=== PATIENT | female | born 1990 | race Caucasian/White ===

== ENCOUNTER 2018-09-20 16:59 | Emergency (ER) | payer SELFPAY ==
[~2018-09-20] VITALS: Ht 149.9 cm; Wt 90.0 kg
[~2018-09-20 16:59] MED LIST: ALLEGRA180 PO; AMOXIL875 PO; BACTRIMDS PO; BACTROCREA TOPICALLY; BCP; COLA50CA3 PO; IBUP80TA PO; MAPA500T17 PO; MOM30SS PO; PYRIDIU100 PO; TESSALO100 PO; VALT1TAB PO; YASMIN PO
[2018-09-20] MEDS ORDERED: cloNIDine 0.1 MG TAB PO ONE (19:45)
[2018-09-20] MEDS ORDERED: PHENobarbital 30 MG TAB PO ONE (19:45)
[2018-09-20 19:54] VITALS: BP 139/79
[2018-09-20] MEDS ORDERED: CLONI1TA PO (20:51)
[2018-09-20] MEDS ORDERED: PHEN30TA37 PO ×2 (20:51→20:53)
[2018-09-20 21:17] VITALS: BP 114/79
== END 2018-09-20 21:19 | disposition home or self-care (01) ==
LOC: M ED 16:59
DX: F11.23 Opioid dependence with withdrawal (principal)

== ENCOUNTER 2018-09-27 18:32 | Emergency (ER) | payer SELFPAY ==
[~2018-09-27] VITALS: Ht 149.9 cm; Wt 72.7 kg
[~2018-09-27 18:32] MED LIST changes: +CLONI1TA PO; +PHEN30TA37 PO
[2018-09-27 18:33] VITALS: BP 122/72
[2018-09-27] MEDS ORDERED: ACETAMINOPHEN TAB 650MG DOSE (2X325MG) PO ONE (19:45)
== END 2018-09-27 20:28 | disposition home or self-care (01) ==
LOC: M ED 18:32
DX: Z59.9 Problem related to housing and economic circumstances, unspecified (principal); F11.10 Opioid abuse, uncomplicated

== ENCOUNTER 2018-10-19 17:08 | Emergency (ER) | payer SELFPAY ==
[~2018-10-19] VITALS: Ht 149.9 cm; Wt 72.7 kg
[2018-10-19] MEDS ORDERED: KETOROLAC TROMETHAMINE 10 MG TAB PO ONE (20:00)
[2018-10-19 21:29] LABS: BASO # 0.1 10^3/uL (0.0-0.2); BASO % 0.4 % (0.0-1.0); EOS # 0.4 10^3/uL (0.0-0.50); EOS % 2.7 % (0.0-3.0); HEMATOCRIT 43.3 % (36.0-47.0); HEMOGLOBIN 14.8 g/dl (12.0-15.5); LYMPH # 3.7 10^3/uL (1.5-6.5); LYMPH % 27.4 % (24.0-44.0); MEAN CORPUSCULAR HEMOGLOBIN 31.8 pg (27.0-33.0); MEAN CORPUSCULAR HGB CONC 34.2 g/dl (32.0-36.5); MEAN CORPUSCULAR VOLUME 93.1 fl (80.0-96.0); MONO # 0.8 10^3/uL (0.0-0.8); MONO % 5.8 % (0.0-5.0); NEUTROPHILS # 8.6 10^3/uL (1.8-7.7); NEUTROPHILS % 63.3 % (36.0-66.0); PLATELET COUNT, AUTOMATED 308 10^3/uL (150-450); RED BLOOD COUNT 4.65 10^6/uL (4.00-5.40); WHITE BLOOD COUNT 13.5 10^3/uL (4.0-10.0)
--- NOTE | 2018-10-19 21:45 | REP ---
Clinical: Foreign body. Swelling. Technique: AP, lateral, bilateral oblique views of the left hand. Findings: Diffuse soft tissue swelling is appreciated. No subcutaneous emphysema or foreign body identified. The osseous structures and joint spaces are intact and normal. Impression: Diffuse swelling. Otherwise normal left hand radiographs. Electronically Signed by Victor M May MD 10/19/2018 09:37 P
[2018-10-19 21:50] LABS: ALBUMIN 3.5 GM/DL (3.2-5.2); ALT/SGPT 35 U/L (12-78); BILIRUBIN,DIRECT < 0.1 MG/DL (0.0-0.2); BILIRUBIN,TOTAL 0.3 MG/DL (0.2-1.0); BLOOD UREA NITROGEN 11 MG/DL (7-18); C REACTIVE PROTEIN QUANTITATIV 3.19 MG/DL (0.00-0.30); CALCIUM LEVEL 8.9 MG/DL (8.5-10.1); CARBON DIOXIDE LEVEL 27 MEQ/L (21-32); CHLORIDE LEVEL 106 MEQ/L (98-107); CREATININE FOR GFR 0.85 MG/DL (0.55-1.30); GLOMERULAR FILTRATION RATE > 60.0 (>60); GLUCOSE, FASTING 81 MG/DL (70-100); POTASSIUM SERUM 4.3 MEQ/L (3.5-5.1); SODIUM LEVEL 139 MEQ/L (136-145); TOTAL PROTEIN 7.6 GM/DL (6.4-8.2)
[2018-10-19 22:00] LABS: ERYTHROCYTE SEDIMENTATION RATE 33 mm/hr (0-20)
[2018-10-19] MEDS ORDERED: LIDOCAINE 2% MDV 20 ML VIAL SC ONE (22:00)
[2018-10-19] MEDS ORDERED: DOXY100C37 PO (22:43)
[2018-10-19 22:53] VITALS: BP 109/68
== END 2018-10-19 22:54 | disposition home or self-care (01) ==
LOC: M ED 17:08
DX: L02.414 Cutaneous abscess of left upper limb (principal); L03.114 Cellulitis of left upper limb; F33.9 Major depressive disorder, recurrent, unspecified; F19.10 Other psychoactive substance abuse, uncomplicated

== ENCOUNTER 2018-11-13 09:49 | Emergency (ER) | payer SELFPAY ==
[~2018-11-13] VITALS: Ht 185.4 cm; Wt 165.0 kg
[~2018-11-13 09:49] MED LIST changes: +DOXY100C37 PO
[2018-11-13] MEDS ORDERED: ONDANSETRON 4MG/2ML VIAL (J2405) As Ordered ONE (10:04)
[2018-11-13] MEDS ORDERED: ONDANSETRON 4MG/2ML VIAL (J2405) IV ONE (10:15)
[2018-11-13] MEDS ORDERED: NS 1,000 ML IV ONE (10:15)
[2018-11-13 12:15] VITALS: BP 90/63
== END 2018-11-13 12:52 | disposition home or self-care (01) ==
LOC: M ED 09:49 → EDBD 09:49 → M ED 12:52
DX: T40.1X1A Poisoning by heroin, accidental (unintentional), initial encounter (principal); X58.XXXA Exposure to other specified factors, initial encounter; Y92.89 Other specified places as the place of occurrence of the external cause; F33.9 Major depressive disorder, recurrent, unspecified
CPT/HCPCS: 36415; 96361; 96374; 99284; J2405

== ENCOUNTER 2018-12-15 11:39 | Emergency (ER) | payer SELFPAY ==
[~2018-12-15] VITALS: Ht 149.9 cm; Wt 87.9 kg
[2018-12-15 11:40] VITALS: BP 135/83
[2018-12-15] MEDS ORDERED: LIDOCAINE 1% MDV 20ML VIAL As Ordered ONE (12:05)
[2018-12-15] MEDS ORDERED: LIDOCAINE 1% MDV 20ML VIAL SC ONE (12:15)
[2018-12-15] MEDS ORDERED: BACT800T5 PO (12:34)
== END 2018-12-15 12:43 | disposition home or self-care (01) ==
LOC: M ED 11:39
DX: L02.511 Cutaneous abscess of right hand (principal); F17.210 Nicotine dependence, cigarettes, uncomplicated

== ENCOUNTER 2018-12-17 15:29 | Emergency (ER) | payer SELFPAY ==
[~2018-12-17] VITALS: Ht 149.9 cm; Wt 87.2 kg
[~2018-12-17 15:29] MED LIST changes: +BACT800T5 PO
[2018-12-17 15:30] VITALS: BP 121/76
== END 2018-12-17 16:09 | disposition home or self-care (01) ==
LOC: M ED 15:29
DX: Z48.00 Encounter for change or removal of nonsurgical wound dressing (principal); L02.511 Cutaneous abscess of right hand; F17.210 Nicotine dependence, cigarettes, uncomplicated; Z79.2 Long term (current) use of antibiotics

== ENCOUNTER 2018-12-19 17:07 | Emergency (ER) | payer SELFPAY ==
[~2018-12-19] VITALS: Ht 149.9 cm; Wt 83.7 kg
[2018-12-19 20:09] VITALS: BP 109/58
[2018-12-19] MEDS ORDERED: AUGM875T28 PO (20:15)
== END 2018-12-19 20:52 | disposition home or self-care (01) ==
LOC: M ED 17:07
DX: L02.511 Cutaneous abscess of right hand (principal); L03.113 Cellulitis of right upper limb; F19.10 Other psychoactive substance abuse, uncomplicated; F32.9 Major depressive disorder, single episode, unspecified; Z72.0 Tobacco use

== ENCOUNTER → 2019-03-31 | Outpatient (CLI) | payer OTHER ==
[~2019-03-31] MED LIST changes: +AUGM875T28 PO
[2019-03-31 13:36] LABS: BASO # 0.1 10^3/uL (0.0-0.2); BASO % 0.8 % (0.0-1.0); EOS # 0.4 10^3/uL (0.0-0.5); EOS % 5.3 % (0.0-3.0); HEMATOCRIT 46.3 % (36.0-47.0); HEMOGLOBIN 15.8 g/dl (12.0-15.5); LYMPH # 2.7 10^3/uL (1.5-5.0); MEAN CORPUSCULAR HEMOGLOBIN 31.5 pg (27.0-33.0); MEAN CORPUSCULAR HGB CONC 34.1 g/dl (32.0-36.5); MEAN CORPUSCULAR VOLUME 92.2 fl (80.0-96.0); MONO # 0.4 10^3/uL (0.0-0.8); MONO % 5.6 % (0.0-5.0); NEUTROPHILS # 3.7 10^3/uL (1.5-8.5); PLATELET COUNT, AUTOMATED 314 10^3/uL (150-450); RED BLOOD COUNT 5.02 10^6/uL (4.00-5.40); WHITE BLOOD COUNT 7.2 10^3/uL (4.0-10.0)
[2019-03-31 14:18] LABS: ALBUMIN 3.7 GM/DL (3.2-5.2); ALT/SGPT 28 U/L (12-78); BILIRUBIN,TOTAL 0.5 MG/DL (0.2-1.0); BLOOD UREA NITROGEN 10 MG/DL (7-18); CALCIUM LEVEL 9.2 MG/DL (8.5-10.1); CARBON DIOXIDE LEVEL 26 MEQ/L (21-32); CHLORIDE LEVEL 107 MEQ/L (98-107); GLOMERULAR FILTRATION RATE > 60.0 (>60); GLUCOSE, FASTING 92 MG/DL (70-100); POTASSIUM SERUM 4.4 MEQ/L (3.5-5.1); SODIUM LEVEL 139 MEQ/L (136-145); THYROID STIMULATING HORMONE 0.406 uIU/ML (0.358-3.740); TOTAL PROTEIN 7.5 GM/DL (6.4-8.2)
== END ==
LOC: M LAB 12:58
PROVIDERS: ATTEND Nurse Practitioner Family
DX: F11.20 Opioid dependence, uncomplicated (principal)

== ENCOUNTER 2019-06-15 18:27 | Emergency (ER) | payer OTHER ==
[~2019-06-15] VITALS: Ht 149.9 cm; Wt 103.8 kg
[2019-06-15] MEDS ORDERED: MIRTAZAPINE (18:32)
[2019-06-15] MEDS ORDERED: FLUO10CA15 (18:32)
[2019-06-15 21:25] LABS: HEMATOCRIT 42.4 % (36.0-47.0); HEMOGLOBIN 14.3 g/dl (12.0-15.5); MEAN CORPUSCULAR HEMOGLOBIN 31.8 pg (27.0-33.0); MEAN CORPUSCULAR HGB CONC 33.7 g/dl (32.0-36.5); MEAN CORPUSCULAR VOLUME 94.2 fl (80.0-96.0); PLATELET COUNT, AUTOMATED 276 10^3/uL (150-450); WHITE BLOOD COUNT 11.5 10^3/uL (4.0-10.0)
--- NOTE | 2019-06-15 21:34 | REPVR ---
PROCEDURE INFORMATION: Exam: US Duplex Right Lower Extremity Veins, Limited Exam date and time: 06/15/2019 9:24 PM Age: 28 years old Clinical indication: Pain; Foot; Right; Additional info: R/O dvt. Pain/swelling TECHNIQUE: Imaging protocol: Real-time Duplex ultrasound of the Right Lower Extremity with 2-D tao scale, color Doppler flow and spectral waveform analysis with image documentation. Limited exam was focused on the right lower extremity veins. COMPARISON: No relevant prior studies available. FINDINGS: Right deep veins: Unremarkable. The common femoral, femoral, proximal profunda femoral and popliteal veins are patent without thrombus. Normal Doppler waveforms. Normal compressibility and/or augmentation response. Right superficial veins: Unremarkable. Saphenofemoral junction is patent without thrombus. Soft tissues: Unremarkable. IMPRESSION: No DVT of the right lower extremity. Electronically signed by: Vu Choi On 06/15/2019 21:33:51 PM
[2019-06-15 21:39] LABS: INR 0.96; PROTHROMBIN TIME 12.4 SECONDS (11.8-14.0)
[2019-06-15 21:40] LABS: PARTIAL THROMBOPLASTIN TIME 26.2 SECONDS (25.0-38.4)
[2019-06-15 21:46] LABS: ALBUMIN 3.9 GM/DL (3.2-5.2); ALT/SGPT 29 U/L (12-78); BILIRUBIN,DIRECT < 0.1 MG/DL (0.0-0.2); BILIRUBIN,TOTAL 0.2 MG/DL (0.2-1.0); BLOOD UREA NITROGEN 17 MG/DL (7-18); C REACTIVE PROTEIN QUANTITATIV < 0.30 MG/DL (0.00-0.30); CALCIUM LEVEL 9.2 MG/DL (8.5-10.1); CARBON DIOXIDE LEVEL 29 MEQ/L (21-32); CHLORIDE LEVEL 108 MEQ/L (98-107); CREATININE FOR GFR 0.85 MG/DL (0.55-1.30); GLOMERULAR FILTRATION RATE > 60.0 (>60); GLUCOSE, FASTING 86 MG/DL (70-100); POTASSIUM SERUM 4.3 MEQ/L (3.5-5.1); SODIUM LEVEL 140 MEQ/L (136-145); TOTAL PROTEIN 7.4 GM/DL (6.4-8.2)
[2019-06-15 21:47] LABS: ANISOCYTOSIS 1+; ATYPICAL LYMPH 9 % (0-5); EOSINOPHILS 3 % (0-3); HYPOCHROMASIA 1+; LYMPHOCYTES 31 % (16-44); MONOCYTES 6 % (0-5); NEUTROPHILS 51 % (28-66)
[2019-06-15 21:48] LABS: PLATELET ESTIMATE NORMAL (NORMAL)
[2019-06-15 21:50] LABS: ERYTHROCYTE SEDIMENTATION RATE 6 mm/hr (0-20)
[2019-06-15 22:42] VITALS: BP 110/63
== END 2019-06-15 22:43 | disposition home or self-care (01) ==
LOC: M ED 18:27
DX: R60.0 Localized edema (principal); F33.9 Major depressive disorder, recurrent, unspecified; F17.210 Nicotine dependence, cigarettes, uncomplicated; Z82.49 Family history of ischemic heart disease and other diseases of the circulatory system

== ENCOUNTER 2019-07-11 17:31 | Emergency (ER) | payer OTHER ==
[~2019-07-11] VITALS: Ht 149.9 cm; Wt 105.9 kg
[~2019-07-11 17:31] MED LIST changes: +FLUO10CA15; +MIRTAZAPINE
[2019-07-11 17:32] VITALS: BP 130/78
[2019-07-11] MEDS: IPRATROPIUM 0.5MG/ALBUTEROL 2.5MG INH SOL UD 3ML (DUONEB)(J7620) NEB PRN ×3 (19:09→19:57)
[2019-07-11] MEDS ORDERED: VENTAER INH (19:36)
--- NOTE | 2019-07-11 20:59 | REP ---
CHEST, TWO VIEWS: There is no evidence of acute infiltrate. No pleural effusion is seen. The heart is normal in size. The mediastinal silhouette is unremarkable. The visualized osseous structures are intact. IMPRESSION: No acute pulmonary disease. Electronically Signed by Man Whitlock MD 07/12/2019 03:34 P
== END 2019-07-11 20:15 | disposition home or self-care (01) ==
LOC: M ED 17:31
DX: J06.9 Acute upper respiratory infection, unspecified (principal); B34.9 Viral infection, unspecified; F17.210 Nicotine dependence, cigarettes, uncomplicated; Z79.51 Long term (current) use of inhaled steroids

== ENCOUNTER 2019-07-29 14:01 | Emergency (ER) | payer OTHER ==
[~2019-07-29] VITALS: Ht 149.9 cm; Wt 106.6 kg
[~2019-07-29 14:01] MED LIST changes: +VENTAER INH
[2019-07-29] MEDS ORDERED: PRED20TA PO (15:58)
[2019-07-29] MEDS ORDERED: FLON1SPR NARES (15:58)
[2019-07-29] MEDS ORDERED: EQLTAB93 PO (15:58)
[2019-07-29 16:05] VITALS: BP 131/69
--- NOTE | 2019-07-30 10:52 | REP ---
REASON: Cough. TWO-VIEW CHEST: FINDINGS: The superior mediastinal structures are midline. The cardiac silhouette is unremarkable in size, shape, and position. The diaphragmatic surfaces of the lungs are regular, and the costophrenic angles are clear. The pulmonary ta are clear. The imaged osseous structures are intact. IMPRESSION: There is no acute cardiopulmonary disease. No change from 07/11/2019. Unreviewed
== END 2019-07-29 16:06 | disposition home or self-care (01) ==
LOC: M ED 14:01
DX: J06.9 Acute upper respiratory infection, unspecified (principal); R05 Cough; F31.9 Bipolar disorder, unspecified; F17.210 Nicotine dependence, cigarettes, uncomplicated

== ENCOUNTER → 2019-10-30 | Outpatient (REF) | payer OTHER ==
[~2019-10-30] MED LIST changes: +EQLTAB93 PO; +FLON1SPR NARES; +PRED20TA PO
[2019-10-30 13:16] LABS: ALBUMIN 3.6 GM/DL (3.2-5.2); ALT/SGPT 44 U/L (12-78); BILIRUBIN,TOTAL 0.2 MG/DL (0.2-1.0); BLOOD UREA NITROGEN 17 MG/DL (7-18); CALCIUM LEVEL 9.2 MG/DL (8.5-10.1); CARBON DIOXIDE LEVEL 24 MEQ/L (21-32); CHLORIDE LEVEL 108 MEQ/L (98-107); GLOMERULAR FILTRATION RATE > 60.0 (>60); GLUCOSE, FASTING 89 MG/DL (70-100); LITHIUM LEVEL 0.75 MEQ/L (0.60-1.20); POTASSIUM SERUM 4.1 MEQ/L (3.5-5.1); SODIUM LEVEL 139 MEQ/L (136-145); TOTAL PROTEIN 7.1 GM/DL (6.4-8.2)
== END ==
LOC: M LAB REF 11:39
PROVIDERS: ATTEND Family Medicine
DX: F31.5 Bipolar disorder, current episode depressed, severe, with psychotic features (principal)

== ENCOUNTER → 2020-01-23 | Outpatient (REF) | payer OTHER, MEDICAID ==
[~2020-01-23] MED LIST changes: -FLUO10CA15; +FLUO10CA16
[2020-01-23 12:46] LABS: BASO # 0.1 10^3/uL (0.0-0.2); BASO % 0.5 % (0.0-1.0); EOS # 0.5 10^3/uL (0.0-0.5); EOS % 4.9 % (0.0-3.0); HEMATOCRIT 43.8 % (36.0-47.0); HEMOGLOBIN 14.2 g/dl (12.0-15.5); LYMPH # 4.7 10^3/uL (1.5-5.0); LYMPH % 48.3 % (24.0-44.0); MEAN CORPUSCULAR HEMOGLOBIN 29.6 pg (27.0-33.0); MEAN CORPUSCULAR HGB CONC 32.4 g/dl (32.0-36.5); MEAN CORPUSCULAR VOLUME 91.3 fl (80.0-96.0); MONO # 0.7 10^3/uL (0.0-0.8); NEUTROPHILS # 3.8 10^3/uL (1.5-8.5); PLATELET COUNT, AUTOMATED 321 10^3/uL (150-450); WHITE BLOOD COUNT 9.7 10^3/uL (4.0-10.0)
[2020-01-23 12:48] LABS: ALBUMIN 3.8 GM/DL (3.2-5.2); ALT/SGPT 22 U/L (12-78); BILIRUBIN,TOTAL 0.3 MG/DL (0.2-1.0); BLOOD UREA NITROGEN 17 MG/DL (7-18); CALCIUM LEVEL 9.3 MG/DL (8.5-10.1); CARBON DIOXIDE LEVEL 25 MEQ/L (21-32); CHLORIDE LEVEL 108 MEQ/L (98-107); CHOLESTEROL LEVEL 281 MG/DL (<200); CHOLESTEROL RISK RATIO 6.386 (<5); CREATININE FOR GFR 0.93 MG/DL (0.55-1.30); FREE T4 1.05 NG/DL (0.76-1.46); GLOMERULAR FILTRATION RATE > 60.0 (>60); GLUCOSE, FASTING 95 MG/DL (70-100); HDL CHOLESTEROL 44 MG/DL (>40); LDL CHOLESTEROL 190 MG/DL (<100); LITHIUM LEVEL < 0.20 MEQ/L (0.60-1.20); NON-HDL-C 237 MG/DL; POTASSIUM SERUM 4.5 MEQ/L (3.5-5.1); SODIUM LEVEL 138 MEQ/L (136-145); TOTAL PROTEIN 7.5 GM/DL (6.4-8.2); TRIGLYCERIDES LEVEL 235 MG/DL (<150)
[2020-01-23 13:03] LABS: HEMOGLOBIN A1c 5.5 %
[2020-01-23 13:13] LABS: TOTAL 25(OH) VITAMIN D 23.3 NG/ML (30.0-100.0)
== END ==
LOC: M LAB REF 10:46
PROVIDERS: ATTEND Nurse Practitioner Family
DX: Z13.9 Encounter for screening, unspecified (principal); K21.9 Gastro-esophageal reflux disease without esophagitis; Z71.2 Person consulting for explanation of examination or test findings; F31.5 Bipolar disorder, current episode depressed, severe, with psychotic features

== ENCOUNTER → 2020-01-23 | Outpatient (REF) | payer OTHER, MEDICAID ==
[2020-01-23 16:13] LABS: APPEARANCE, URINE HAZY (CLEAR); BACTERIA, URINE AUTO NEGATIVE (NEGATIVE); BILIRUBIN, URINE AUTO NEGATIVE (NEGATIVE); BLOOD, URINE BLOOD 1+ (NEGATIVE); CALCIUM OXALATE CRYSTALS MODERATE; COLOR, URINE YELLOW (YELLOW); GLUCOSE, URINE (UA) AUTO NEGATIVE (NEGATIVE); KETONE, URINE AUTO NEGATIVE (NEGATIVE); LEUKOCYTE ESTERASE, URINE AUTO NEGATIVE (NEGATIVE); MUCUS, URINE SMALL (NEGATIVE); NITRITE, URINE AUTO NEGATIVE (NEGATIVE); PROTEIN, URINE AUTO NEGATIVE (NEGATIVE); RBC, URINE AUTO 1 /HPF (0-3); SPECIFIC GRAVITY URINE AUTO 1.031 (1.002-1.035); SQUAMOUS EPITHELIAL CELL UR AU 3 /HPF (0-6); UROBILINOGEN, URINE AUTO 0.2 mg/dL (0.0-2.0); WBC, URINE AUTO 1 /HPF (0-3)
== END ==
LOC: M LAB REF 11:22
PROVIDERS: ATTEND Nurse Practitioner Family
DX: Z13.9 Encounter for screening, unspecified (principal); K21.9 Gastro-esophageal reflux disease without esophagitis; Z71.2 Person consulting for explanation of examination or test findings; F31.5 Bipolar disorder, current episode depressed, severe, with psychotic features

== ENCOUNTER → 2020-04-03 | Outpatient (CLI) | payer OTHER, MEDICAID ==
[2020-04-03 12:30] LABS: HEMOGLOBIN A1c 5.2 %
== END ==
LOC: M LAB 11:05
PROVIDERS: ATTEND Surgery
DX: Z86.39 Personal history of other endocrine, nutritional and metabolic disease (principal)

== ENCOUNTER 2020-12-26 18:05 | Emergency (ER) | payer OTHER, MEDICAID ==
[~2020-12-26] VITALS: Ht 180.3 cm; Wt 91.8 kg
[2020-12-26 18:05] VITALS: BP 134/84
[~2020-12-26 18:05] MED LIST changes: -DOXY100C37 PO; +DOXY1CAP62 PO; -PHEN30TA37 PO; +PHEN30TA46 PO
== END 2020-12-26 20:37 | disposition left against medical advice (07) ==
LOC: M ED 18:05
DX: Z53.21 Procedure and treatment not carried out due to patient leaving prior to being seen by health care provider (principal)

== ENCOUNTER → 2021-05-01 | Outpatient (CLI) | payer OTHER, MEDICAID ==
[~2021-05-01] MED LIST changes: +DOXY-443 PO; -DOXY1CAP62 PO; -FLUO10CA16; +FLUO10CA18
[2021-05-01 13:59] LABS: ALBUMIN 4.3 GM/DL (3.2-5.2); ALT/SGPT 19 U/L (12-78); BILIRUBIN,DIRECT 0.1 MG/DL (0.0-0.2); BILIRUBIN,TOTAL 0.4 MG/DL (0.2-1.0); BLOOD UREA NITROGEN 12 MG/DL (7-18); CALCIUM LEVEL 10.3 MG/DL (8.5-10.1); CARBON DIOXIDE LEVEL 25 MEQ/L (21-32); CHLORIDE LEVEL 105 MEQ/L (98-107); CHOLESTEROL LEVEL 262 MG/DL (<200); CREATININE FOR GFR 0.89 MG/DL (0.55-1.30); FREE T4 1.29 NG/DL (0.76-1.46); GLOMERULAR FILTRATION RATE > 60.0 (>60); GLUCOSE, FASTING 92 MG/DL (70-100); HDL CHOLESTEROL 41 MG/DL (>40); LDL CHOLESTEROL 186 MG/DL (<100); NON-HDL-C 221 MG/DL; PHOSPHORUS LEVEL 2.4 MG/DL (2.5-4.9); SODIUM LEVEL 137 MEQ/L (136-145); THYROID STIMULATING HORMONE 0.056 uIU/ML (0.358-3.740); TOTAL PROTEIN 8.3 GM/DL (6.4-8.2); TRIGLYCERIDES LEVEL 175 MG/DL (<150)
[2021-05-01 14:11] LABS: TOTAL 25(OH) VITAMIN D 14.8 NG/ML (30.0-100.0)
== END ==
LOC: M LAB 12:24
PROVIDERS: ATTEND Nurse Practitioner Psychiatric/Mental Health
DX: E55.9 Vitamin D deficiency, unspecified (principal); Z79.899 Other long term (current) drug therapy; F39 Unspecified mood [affective] disorder; Z51.81 Encounter for therapeutic drug level monitoring; Z13.6 Encounter for screening for cardiovascular disorders; Z13.1 Encounter for screening for diabetes mellitus

== ENCOUNTER 2021-07-17 20:49 | Emergency (ER) | payer MEDICAID, OTHER ==
[~2021-07-17] VITALS: Ht 149.9 cm; Wt 82.6 kg
[2021-07-17] MEDS ORDERED: TOPI50TA9 (22:51)
[2021-07-17] MEDS ORDERED: OMEP40CA5 (22:51)
[2021-07-17] MEDS ORDERED: VENL37TA (22:51)
[2021-07-17] MEDS ORDERED: CLON-412 (22:51)
[2021-07-17] MEDS ORDERED: ACETAMINOPHEN TAB 650MG DOSE (2X325MG) PO ONE (23:20)
[2021-07-17] MEDS ORDERED: IBUPROFEN 800 MG TAB PO ONE (23:20)
[2021-07-18 01:35] VITALS: BP 128/81
== END 2021-07-18 02:13 | disposition home or self-care (01) ==
LOC: M ED 20:49
DX: Z04.71 Encounter for examination and observation following alleged adult physical abuse (principal); T14.8XXA Other injury of unspecified body region, initial encounter; Y04.8XXA Assault by other bodily force, initial encounter; Y07.03 Male partner, perpetrator of maltreatment and neglect; Y92.89 Other specified places as the place of occurrence of the external cause